=== PATIENT | male | born 1960 | race Caucasian/White ===

== ENCOUNTER → 2017-09-19 | Emergency (ER) | payer OTHER ==
[~2017-09-19] VITALS: Ht 175.3 cm; Wt 89.8 kg
[~2017-09-19] MED LIST: VASOTEC10 MG
== END | disposition home or self-care (01) ==
LOC: ER 19:50
DX: S80.01XA Contusion of right knee, initial encounter (principal); W18.39XA Other fall on same level, initial encounter; Y93.89 Activity, other specified; Y92.69 Other specified industrial and construction area as the place of occurrence of the external cause; Y99.8 Other external cause status

== ENCOUNTER → 2022-05-21 | Emergency (ER) | payer OTHER ==
[~2022-05-21] VITALS: Ht 177.8 cm; Wt 80.7 kg
[~2022-05-21] MED LIST changes: +BACTRIM 400-801 EACH PO
== END | disposition home or self-care (01) ==
LOC: ER 17:09
DX: L03.115 Cellulitis of right lower limb (principal)

== ENCOUNTER → 2022-08-29 | Outpatient (CLI) | payer OTHER | END | disposition home or self-care (01) | LOC: NUCLEAR 06:45 | PROVIDERS: ATTEND Internal Medicine Geriatric Medicine | DX: R22.43 Localized swelling, mass and lump, lower limb, bilateral (principal) ==

== ENCOUNTER → 2022-09-01 | Outpatient (CLI) | payer OTHER | END | disposition home or self-care (01) | LOC: SONOGRAMA 14:02 | PROVIDERS: ATTEND Internal Medicine Geriatric Medicine | DX: I11.9 Hypertensive heart disease without heart failure (principal); R06.02 Shortness of breath; N18.30 Chronic kidney disease, stage 3 unspecified ==

== ENCOUNTER 2025-05-26 20:38 | Emergency (ER) | payer OTHER ==
[~2025-05-26] VITALS: Ht 175.3 cm; Wt 87.5 kg
[2025-05-26] MEDS ORDERED: DEXAMETHASONE SODIUM PHOSP/PF 10 MG/ML VIAL IJ ONE (21:45)
[2025-05-26] MEDS ORDERED: DEXAMETHASONE SODIUM PHOSPHATE 4 MG/ML VIAL ONE (21:54)
[2025-05-27] MEDS ORDERED: MEDROLPACK PO (00:22)
== END 2025-05-27 00:36 | disposition home or self-care (01) ==
LOC: ER 20:38
DX: M25.461 Effusion, right knee (principal); Z88.6 Allergy status to analgesic agent; Z88.0 Allergy status to penicillin